=== PATIENT | female | born 1970 | race Caucasian/White ===

== ENCOUNTER 2021-09-29 14:00 | Outpatient (RCR) | payer OTHER, SELFPAY ==
[2021-09-15 14:16] VITALS: BP 136/76; PULSE 100; TEMP 36.1
--- NOTE | 2021-09-15 16:15 | HP.PCM_ITS ---
History of Present Illness Date of Service: 09/15/21 Chief Complaint: Venous stasis ulcer right lower extremity/cellulitis History of Wound: Is a 51-year-old Alexis patient who presents to the wound healing center today with complaint of nonhealing wound to her right lower extremity. She states that she does have a history of varicose veins. The patient states that her wound has been present to the right lower extremity for the last couple of months. She has went to the urgent care twice and has been on doxycycline and has been utilize using a multitude of salves and triple antibiotic ointment. More recently she has been flushing the site with baking soda and peroxide. She denies any systemic signs of infection at this time such as fever or chills. She does note that her right lower extremity around the wound is somewhat warm and more tender. Denies any other acute concerns. Past medical, family, and social history reviewed and not pertinent to the current visit and all other systems reviewed and negative with exception of those listed above. [facility] Medical History (Updated 09/15/21 @ 11:13 by MICHAEL Lynch) Hemorrhoids Home Medications NK 06/17/21 [History Last Taken Unknown] Allergy/AdvReac Type Severity Reaction Status Date / Time No Known Allergies Allergy Verified 06/17/21 13:53 Family History no significant family his no significant family history Surgical History no surgical history no surgical history ROS ROS Narrative Negative x10 systems with exception of those listed above Vital Signs Vital Signs Vital Signs: 09/15/21 14:16 Temperature 97.0 F L Temperature Source Temporal Pulse Rate 100 Blood Pressure 136/76 H Blood Pressure Mean 96 Blood Pressure Source Monitor Blood Pressure Position Semi-Fowlers Blood Pressure Location Left Arm Physical Exam Const alert, oriented x3, no apparent distress, healthy appearing and well nourished General Appearance: cooperative Exam Limitations: no limitations HEENT normocephalic Head and Scalp: normal to inspection Mouth: oral and palatal mucosa normal Eyes General Eye: normal appearance of both eyes Resp normal respiratory effort, normal air movement and no use of accessory muscles Effort and Inspection: able to speak in complete sentences Auscultation: clear to auscultation bilaterally Cardio regular rate, regular rhythm, S1 normal heart sound, S2 normal heart sound, no murmurs and peripheral pulses 2+ throughout Palpation: normal PMI Rate: regular rate Heart Sounds: S1 normal and S2 normal GI normal to inspection, nondistended, normoactive bowel sounds, soft to palpation, non-tender and non-distended Palpation: soft Extremity normal to inspection and full ROM Extremity Narrative: Right lower extremity venous stasis ulcer with surrounding warmth and erythema, mild, there is slough present in the wound, no drainage at this time, no streaking or pain in the calf, hemosiderin staining present bilaterally with large varicose veins bilateral lower extremities, peripheral pulses 2+ General Extremity: normal exam except as noted Neuro oriented x3 and moves all extremities Sensorium / Orientation: awake, alert, oriented to person, oriented to place and oriented to time Psych mental status grossly normal, thought process normal and denies hallucinations Appearance: grossly normal Attitude: calm Activity / Motor Behavior: appropriate eye contact Speech: normal speech Thought Process: normal thought process Thought Content: normal thought content Attention / Concentration: attention grossly intact Insight: insight good Judgement: judgement good Debridement Note Debridement Note Wound debrided: Right VL U Laterality: Right Type of Debridement: Selective debridement Anesthesia Used: 4% Lidocaine Solution Depth: Down to and including healthy tissue Percentage of wound debrided: 100 Instrument Used: 5mm curette Tissue Removed: Slough devitalized tissue Severity: Limited To Skin Breakdown Amount of bleeding with debridement: Mild Bleeding Controlled with: Pressure Patient tolerated procedure: Patient tolerated procedure well Post-Debridement Measurements and Additional Note: Post-Debridement Measurements/Treatment - Nurse 1 - General Ulcer Assessment Start: 09/15/21 13:56 Freq: Status: Active Protocol: JOHN Activity Type Activity Date Activity User E-Sign Co-Sign Detail Recorded Client Recorded Date Recorded By Document 09/15/21 14:16 FEDERICA [id number] 09/15/21 14:28 FEDERICA 09/15/21 14:16 - Today's Visit Information Type of service Initial Visit Arrival Mode Ambulatory Patient Identification Verified (Name & Yes ) Vital Signs Temperature (97.8 F-99.1 F) 97.0 F L Temperature Source Temporal Pulse Rate (60-100) 100 Pulse Location Monitor Blood Pressure (90/60-120/80) 136/76 H Blood Pressure Mean 96 Source Monitor Position Semi-Fowlers Blood Pressure Location Left Arm History Since Last Visit- (Skip if this is Patient's initial visit) Have you changed medications since your No last visit? Any new allergies or adverse reactions No Had a fall/change in ADL's that may No increase risk of falls Signs or symptoms of abuse and/or No neglect since last visit Have you been in the hospital since your No last visit? Has dressing in place as prescribed Yes Has compression in place as prescribed No Has offloadiing in place as prescribed N/A Experienced any changes in pain level or No management Left Footwear Regular Shoe Right Footwear Regular Shoe Pain Scale: 0-10 Numeric Is Patient Pain Free? Yes WC - Nurse 1 - General Ulcer Measurement Start: 09/15/21 13:56 Freq: Status: Active Protocol: Activity Type Activity Date Activity User E-Sign Co-Sign Detail Recorded Client Recorded Date Recorded By Document 09/15/21 14:16 KR [id number] 09/15/21 14:28 KR 09/15/21 14:16 Wound Center Nurse 1 #1 Left medial leg -Combined with other wound No -Current Size (cm) - Length 0.4 -Current Size (cm) - Width 0.9 -Current Size (cm) - Depth 0.1 -Total Square Cm 0.36 -Photo Taken No -Tunneling No -Undermining/Tunneling No -Circular Undermining No -Exudate Amt None Present -Wound Margin Distinct, Outline Attached -Granulation Amt None Present (0 %) -Granulation Quality N/A -Slough/Fibrin No -Necrosis Amt None Present (0 %) -Structure Exposed N/A -Texture (Kelle-wound Skin Appearance) Assessed, Scarring -Moisture (Kelle-wound Skin Appearance) Assessed,Dry/ Scaly -Color (Kelle-wound Skin Appearance) Assessed, Hemosiderin Staining -Temperature (Klele-wound Skin No Abnormality Appearance) (Pt Warm) -Tenderness on Palpation (Kelle-wound Yes Skin Appearance) -Ulcer Cleansing Rinsed/ Irrigated with Saline -Foul Odor after Cleansing No -Anesthetic Used 5% Lidocaine Gel Right Calf (cm) 40.6 Right Ankle (cm) 23.8 Left Calf (cm) 41 Left Ankle (cm) 26.3 QIANA - Nurse 2 - General Ulcer CM Notes Start: 09/15/21 13:56 Freq: Status: Active Protocol: Activity Type Activity Date Activity User E-Sign Co-Sign Detail Recorded Client Recorded Date Recorded By Document 09/15/21 14:37 MW [id number] 09/15/21 14:49 MW 09/15/21 14:37 Wound Center Nurse 2 #1 Left medial leg -Time 14:37 -Correct Patient Yes -Correct Side, Site, Position Yes -Correct Procedure Yes -Procedure Performed Yes -Type of Procedure Debridement -Clinical Debridement Epidermis / Dermis -Tissue Removed Epidermis -Post Debridement (cm) - Length 0.5 -Post Debridement (cm) - Width 1.2 -Post Debridement (cm) - Depth 0.1 -Total Square (Post) (cm) 0.60 -Area of Debridement (cm) - Length 0.5 -Area of Debridement (cm) - Width 1.2 -Total Square (Area) (cm) 0.60 -Tunneling No -Undermining/Tunneling No -Circular Undermining No -Wound/Ulcer Outcome Not Healed -Ulcer Cleansing Rinsed/ Irrigated with Saline -Foul Odor after Cleansing No -Bioengineered Tissue No -Bleeding Controlled with Pressure -Offloading No -Treatment Response Procedure Tolerated Well -Debridement - Open, 1st 20sq cm Yes Pain Scale: 0-10 Numeric Is Patient Pain Free? Yes - Nurse 3 - General Ulcer D/C NN Start: 09/15/21 13:56 Freq: Status: Active Protocol: Activity Type Activity Date Activity User E-Sign Co-Sign Detail Recorded Client Recorded Date Recorded By Document 09/15/21 15:20 AK [id number] 09/15/21 15:24 AK 09/15/21 15:20 Wound Care Nurse 3 #1 Left medial leg -Ulcer Cleansing Rinsed/ Irrigated with Saline -Foul Odor after Cleansing No -Negative Pressure Wound Therapy N/A -Primary Dressing Applied Promogran Danielle Matter -Primary Dressing Covered/Secured with Dry Gauze & Roll Gauze, Secured with Tape -Promogran Danielle Matter 2 Right -Lotion applied to leg before No compression wrap -Tubular Bandage Double Layer -Size of Tubigrip Used Size E -Size E ($) 2 WC - Visit Discharge Discharge Condition Stable Ambulatory Status Ambulatory Medication Reconcilliation completed & No provided to patient/care provider Clinical Summary of Care Provided Yes Charges/Coding Visit Charges Office Visits / Consults: 30550 OV L2 Est Assessment/Plan Assessment/Plan (1) Venous stasis ulcer: CODE(S): I83.009 - Varicose veins of unspecified lower extremity with ulcer of unspecified site; L97.909 - Non-pressure chronic ulcer of unspecified part of unspecified lower leg with unspecified severity (2) Cellulitis of left lower extremity without foot: CODE(S): L03.116 - Cellulitis of left lower limb PLAN: Debridement performed today in clinic as annotated above. moistened danielle applied. At home wound-care instructions: Daily moistened Danielle cover with gauze, Change dressing once daily or more frequently as needed due to contamination. Wash wounds daily with antibacterial soap and water, rinse and dry thoroughly before each dressing change. Compression: Double layer Tubigrip's Off-loading: The patient was instructed to avoid pressure and friction on the affected areas. Reposition every 2 hours at minimum. Avoid prolonged standing and/or dangling of legs. When seated, feet should be elevated at chest level. Frequent ambulation is encouraged. Diet: Patient encouraged to increase protein intake while taking caution to avoid high carbohydrate and/or sugar intake. Patient is a non-smoker Labs/cultures/imaging: Cultures ordered and collected today. Routine baseline lab work held. Vascular studies held. Follow-up: Return to clinic in 2 week for re-evaluation. Return sooner or rep ort to the emergency room should symptoms worsen, or new symptoms arise.
--- NOTE | 2021-09-20 08:45 | WC ---
N.O.'S RECEIVED PER ADY SEGURA NP. PT'S WOUND CX RESULTS REVIEWED. + STAPH. GARCIA CALLED IN TO [facility], PER ADY. THIS NURSE CALLED AND LEFT UPDATE/MSG FOR PT.
[2021-09-29 14:17] VITALS: BP 123/88; PULSE 88; RESP 16; TEMP 36.3
--- NOTE | 2021-09-29 23:54 | PCM.WC.PN ---
History of Present Illness Date of Service: 09/29/21 Chief Complaint: Venous stasis ulcer right lower extremity/cellulitis History of Wound: Is a 51-year-old Zoroastrian patient who presents to the wound healing center today with complaint of nonhealing wound to her right lower extremity. She states that she does have a history of varicose veins. The patient states that her wound has been present to the right lower extremity for the last couple of months. She has went to the urgent care twice and has been on doxycycline and has been utilize using a multitude of salves and triple antibiotic ointment. More recently she has been flushing the site with baking soda and peroxide. She denies any systemic signs of infection at this time such as fever or chills. She does note that her right lower extremity around the wound is somewhat warm and more tender. Denies any other acute concerns. Past medical, family, and social history reviewed and not pertinent to the current visit and all other systems reviewed and negative with exception of those listed above. Progress of Wound: No new concerns, the wound to her right lower extremity is now healed without any signs of infection at this time. Regarding her cellulitis, her cultures previously showed staph aureus and she was treated with doxycycline which she has 2 days left. She states that the redness and warmth has almost entirely resolved and that she has been trying to remain more compliant with compression. Objective Data Objective Data Vital Signs: Vital Signs Temp Pulse Resp BP 97.3 F L 88 16 123/88 H 09/29/21 14:17 09/29/21 14:17 09/29/21 14:17 09/29/21 14:17 Lab / Micro Data Micro: Microbiology 09/15/21 14:40 Wound Abcess - Leg, Left Gram Stain - Final 09/15/21 14:40 Wound Abcess - Leg, Left Wound Culture - Final Staphylococcus aureus 09/15/21 14:40 Wound Abcess - Leg, Left Anaerobic Culture - Final No anaerobic bacteria isolated. Charges/Coding Visit Charges Office Visits / Consults: [id number] OV L2 Est Physical Exam Const alert, oriented x3, no apparent distress, healthy appearing and well nourished General Appearance: cooperative Exam Limitations: no limitations HEENT normocephalic Head and Scalp: normal to inspection Mouth: oral and palatal mucosa normal Eyes General Eye: normal appearance of both eyes Resp normal respiratory effort, normal air movement and no use of accessory muscles Effort and Inspection: able to speak in complete sentences Auscultation: clear to auscultation bilaterally Cardio regular rate, regular rhythm, S1 normal heart sound, S2 normal heart sound, no murmurs and peripheral pulses 2+ throughout Palpation: normal PMI Rate: regular rate Heart Sounds: S1 normal and S2 normal GI normal to inspection, nondistended, normoactive bowel sounds, soft to palpation, non-tender and non-distended Palpation: soft Extremity full ROM Extremity Narrative: Right lower extremity venous stasis ulcer now healed with no surrounding warmth or erythema, no drainage at this time, no streaking or pain in the calf, hemosiderin staining present bilaterally with large varicose veins bilateral lower extremities, peripheral pulses 2+ General Extremity: normal exam except as noted Neuro oriented x3 and moves all extremities Sensorium / Orientation: awake, alert, oriented to person, oriented to place and oriented to time Psych mental status grossly normal, thought process normal and denies hallucinations Appearance: grossly normal Attitude: calm Activity / Motor Behavior: appropriate eye contact Speech: normal speech Thought Process: normal thought process Thought Content: normal thought content Attention / Concentration: attention grossly intact Insight: insight good Judgement: judgement good Debridement Note Debridement Note No debridement was completed: No debridement was completed today Assessment/Plan Assessment/Plan (1) Venous stasis ulcer: CODE(S): I83.009 - Varicose veins of unspecified lower extremity with ulcer of unspecified site; L97.909 - Non-pressure chronic ulcer of unspecified part of unspecified lower leg with unspecified severity (2) Cellulitis of left lower extremity without foot: CODE(S): L03.116 - Cellulitis of left lower limb PLAN: Healed without any signs of infection at this time. At home wound-care instructions: For wound protection, cover with Adaptic and gauze for the next week Compression: Double layer Tubigrip's, discussed in detail with patient that she will need to remain compliant with compression recommended compression stockings at 20 to 30 mmHg bilaterally. Off-loading: The patient was instructed to avoid pressure and friction on the affected areas. Reposition every 2 hours at minimum. Avoid prolonged standing and/or dangling of legs. When seated, feet should be elevated at chest level. Frequent ambulation is encouraged. Diet: Patient encouraged to increase protein intake while taking caution to avoid high carbohydrate and/or sugar intake. Patient is a non-smoker Follow-up: Discharge from the wound healing center today as wound is healed and cellulitis is resolved. Return sooner or report to the emergency room should symptoms worsen, or new symptoms arise. I have spent 20 minutes today reviewing labs, records, and history. Time includes coordinating care, interpretation of tests, and counseling the patient/family. This also includes time I spent with the patient for exam, treatment plan, and education as well as documenting clinical information in the electronic health record.
== END 2021-09-29 15:26 | disposition home or self-care (01) ==
LOC: WC 14:00
PROVIDERS: PCP Family Medicine; Visit Provider Nurse Practitioner Family
DX: I83.019 Varicose veins of right lower extremity with ulcer of unspecified site (principal); L97.911 Non-pressure chronic ulcer of unspecified part of right lower leg limited to breakdown of skin; L03.116 Cellulitis of left lower limb
CPT/HCPCS: 87070; 87075; 87077; 87186; 87205; 97597; 99203; 99212; G0463